=== PATIENT | male | born 1935 | race Caucasian/White ===

== ENCOUNTER → 2024-03-06 10:22 | Outpatient (REF) | payer OTHER, SELFPAY | LOC: HWRAD 10:22 | PROVIDERS: ATTENDING PHYSICIAN Internal Medicine Cardiovascular Disease; FAMILY PHYSICIAN Internal Medicine | DX: I25.10 Atherosclerotic heart disease of native coronary artery without angina pectoris (principal); I10 Essential (primary) hypertension; Z95.1 Presence of aortocoronary bypass graft; I35.1 Nonrheumatic aortic (valve) insufficiency | CPT/HCPCS: 71250 ==

== ENCOUNTER 2024-03-09 04:35 | Emergency (ER) | payer OTHER, SELFPAY ==
[2024-03-09] VITALS (28 sets, daily range): BP systolic 129–188; BP diastolic 63–88; PULSE 76–101; BMI 28.3
[2024-03-09 05:27] LABS: Urine Albumin Trace (Neg - Trace); Urine Bilirubin Negative (Negative); Urine Character Clear (Clear); Urine Color Yellow; Urine Glucose Negative (Negative); Urine Ketone Trace (Negative); Urine Leukocyte Negative (Negative); Urine Nitrite Negative (Negative); Urine Occult Blood Negative (Negative); Urine Urobilinogen Negative (Neg - 1+)
[2024-03-09 05:39] LABS: % Basophils 0.3 % (0-2); % Eosinophils 10.8 % (0-6); % Immature Granulocytes 0.3 % (0-0.5); % Lymphocytes 32.7 % (20.5-51.1); % Monocytes 8.6 % (1.7-9.3); % Neutrophils 47.3 % (42.2-75.2); Absolute Eosinophils 0.8 10^3/uL (0-0.7); Absolute Lymphocytes 2.4 10^3/uL (1.2-3.4); Absolute Monocytes 0.6 10^3/uL (0.1-0.6); Absolute Neutrophils 3.5 10^3/uL (1.4-6.5); Hematocrit 40.3 % (39.0-52.0); Hemoglobin 14.1 g/dL (13.0-18.0); Mean Corpuscular Volume 91.6 fL (80.0-94.0); Mean Platelet Volume 9.8 fL (7.4-10.4); Nucleated Red Blood Cells % 0 % (-); Platelet Count 230 10^3/uL (130-400); Red Cell Dist. Width 12.6 % (11.5-14.5); White Blood Cell Count 7.3 10^3/uL (4.8-10.8)
[2024-03-09 05:51] LABS: ALT (SGPT) 16 U/L (0-50); AST (SGOT) 22 U/L (17-59); Albumin 4.7 g/dl (3.5-5.0); Alkaline Phosphatase 47 U/L (38-126); Blood Urea Nitrogen 26 mg/dl (9-20); Calcium 9.9 mg/dl (8.4-10.2); Carbon Dioxide 22 mmol/L (22-30); Chloride 106 mmol/L (98-107); Estimated Creatinine Clearance 28 ml/min; Glucose 133 mg/dl (70-99); Potassium 4.3 mmol/L (3.5-5.1); Sodium 137 mmol/L (135-145); Total Bilirubin 0.7 mg/dl (0.2-1.3); Total Protein 7.3 g/dl (6.3-8.2)
[2024-03-09 07:11] LABS: Magnesium 1.8 mg/dl (1.6-2.3)
[2024-03-09 07:12] LABS: Troponin I < 0.012 ng/ml
[2024-03-09 07:59] LABS: TSH Reflex To Free T4 3.08 uIU/ml (0.47-4.68)
--- NOTE | 2024-03-09 08:24 | ED.GENMED ---
History of Present Illness
General
Chief Complaint: Weakness
Source: patient
Exam Limitations: none
Time Seen by Provider: 03/09/24 06:01
Nursing documentation reviewed up to this point in time: agreed with
Travel History
Have you had any contact with someone who has COVID-19?: No
Do you have any symptoms of coronavirus? Fever > 100 degrees, chills, cough, shortness of breath, sore throat, loss of taste or smell, muscle aches, or headache?: No
History of Present Illness
History of Present Illness:
Pt with history of CAD, presents to ED secondary to generalized weakness, which caused patient to fall when stood up from reclining chair this morning, which caused him to fall. Denies fever. Denies injury. Denies chest
pain/palpitations/dizziness/sob/nausea. Denies headache. Denies loss of sensation/weakness. Denies recent change in medications/diet. Of note, patient has had on-going generalized weakness over the past one month, which has caused him to be less
active. Pt is scheduled to see his psychotherapist social worker next week.
Past History
Past History
ED Past Medical History: CAD, CHF, HTN, Hypercholesterolemia, NIDDM and PR
ED Past Surgical History: Cardiac (CABG) and Other (MOH's surgery)
Social History
Tobacco: Former smoker
Alcohol: Occasional
Personal:
Living: with family
Review of Systems
Review of Systems
Allergies reviewed?: Yes
All Other Systems: ROS reviewed and negative except as documented in HPI and ROS
Constitutional: Reports no symptoms
EENT: Reports no symptoms
Respiratory: Reports no symptoms
Cardiac: Reports no symptoms
ABD/GI: Reports no symptoms
: Reports no symptoms
Musculoskeletal: Reports no symptoms
Skin: Reports no symptoms
Neurological: Reports weakness
Phy Exam
Physical Exam
Physical Exam:
Physical Exam
General: no apparent distress, not acutely ill. afebrile.
Head: nc/at. eomi
Neck: supple. no meningeal signs.
Heart: s1/s2 regular rate and rhythm, no murmur. equal radial pulses.
Lungs: no acute respiratory distress. clear bilaterally
Abdomen: normal bowel sounds. not tender.
Neuro: alert and oriented. no focal neurological deficits. normal speech.
Skin: no rash
Psychiatric: well kept. interactive and cooperative
Extremities: no edema. no calf tenderness.
Course
Orders/Labs/Results
Orders:
Orders
03/09/24 04:52
EKG [Electrocardiogram (*1)] Urgent
Reason for Study: Fatigue / Weakness
03/09/24 04:53
EKG- Treatment ONCE
03/09/24 05:13
Complete Blood Count/With Diff Urgent
Comprehensive Metabolic Panel Urgent
Magnesium Urgent
Comment: ADD ON
TSH Reflex To Free T4 Urgent
Comment: ADD ON
Urinalysis Reflex To Culture Urgent
Date Specimen was Collected: 03/09/24
Time Specimen was Collected: 05:05
03/09/24 06:34
Add On- LAB Urgent
Tests Added?: magnesium, TSH to reflex Free T4
03/09/24 06:35
Orthostatic VS- Treatment ONCE
03/09/24 06:39
Troponin I Urgent
03/09/24 08:24
0.9% Sodium Chloride 500 ml [Nss] 500 ml IV BOLUS
03/09/24 09:40
0.9% Sodium Chloride 500 ml [Nss] 500 ml IV BOLUS
03/09/24 09:41
Physical Therapy Consult [Pt Eval And Treat] Urgent
Activity Level: As Tolerated
03/09/24 10:18
CT Head W/o Iv Contrast Urgent
Comment:
Reason For Exam: dizziness
Abnormal Lab Results
03/09/24
05:13
RBC 4.40 L 10^6/uL
(4.70-6.10)
MCH 32.0 H pg
(27.0-31.0)
Absolute Eos (auto) 0.8 H 10^3/uL
(0-0.7)
Eosinophils % 10.8 H %
(0-6)
BUN 26 H mg/dl
(9-20)
Creatinine 1.7 H mg/dL
(0.7-1.3)
Glucose 133 H mg/dl
(70-99)
Urine Ketones Trace A
(Negative)
03/09/24 05:13
03/09/24 05:13
Vital Signs
Initial and Last Documented VS:
Initial Vital Signs
BP
170/88
03/09/24 04:39
Last Documented Vital Signs
Temp Pulse Resp BP Pulse Ox
98.3 F 76 18 161/73 97
03/09/24 04:41 03/09/24 13:48 03/09/24 13:48 03/09/24 13:48 03/09/24 13:48
MDM/Problems Addressed
MDM/Problems Addressed:
Patient with an unremarkable workup in ED, including blood work and CT head. Patient also evaluated by physical therapy, with recommendation provided. Patient is able to ambulate independently with steady gait on multiple occasions during
observation ED, after receiving IV fluids. Patient with potentially mild degree of dehydration, which may be contributing to his symptoms, along with underlying gait dysfunction. As such, decision made to discharge patient home at this time, and
arrangements made by case management for home PT/OT.
*Critical Care Note
Total Time (30-74mins, 75-104mins- exclusive of procedures): Not Applicable
ED Attending Note
-
Portions of this chart may have been created with voice recognition software.� Occasional wrong word or��sound alike� substitutions may have occurred due to the inherent limitations of voice recognition software.
Discharge Plan
Departure
Patient Disposition: Home (Routine Discharge)
Date of Disposition: 03/09/24
Time of Disposition: 13:17
Patient with high blood pressure during this ER visit?: Yes
Discharge Problem:
Weakness
Instructions: Generalized Weakness (DC)
Prescriptions:
No Action
hydralazine 10 mg Tablet
10 mg PO BID
Theragen Tablet
1 tab PO DAILY
aspirin 81 mg Tablet,Delayed Release (Dr/Ec)
81 mg PO DAILY
acetaminophen [Tylenol 8 Hour] 650 mg Tablet Extended Release
650 mg PO Q8HPRN PRN (Reason: mild pain)
amlodipine [Norvasc] 10 mg Tablet
10 mg PO QPM
losartan 100 mg Tablet
100 mg PO DAILY
finasteride [Proscar] 5 mg Tablet
5 mg PO HS
rosuvastatin [Crestor] 10 mg Tablet
10 mg PO DAILY
cholecalciferol (vitamin D3) [Vitamin D3] 25 mcg (1,000 unit) Tablet
25 mcg PO DAILY
Visbiome 112.5 billion cell Capsule
1 cap PO DAILY
melatonin 5 mg Tablet
5 mg PO HSPRN PRN (Reason: sleep)
Referrals:
Charlene Dickerson DO [Family Provider] -
Activity Restrictions/Additional Instructions:
As discussed, please follow-up with your primary care physician for reevaluation.
Interventions
Interventions:
*Risk Screen - Suicide Last Done: 03/09/24 04:41
*General Assessment Last Done: 03/09/24 04:41
*Neglect/Abuse Screening Last Done: 03/09/24 04:41
ED- Fall Risk Assessment Last Done: 03/09/24 04:53
*ED COVID-19 Vaccine History Last Done: 03/09/24 05:29
*Nursing Disposition Last Done: 03/09/24 13:48
ED- Cardiac Assessment Last Done: 03/09/24 08:06
ED- Neurological Assessment Last Done: 03/09/24 08:06
ED- Pulmonary Assessment Last Done: 03/09/24 08:06
Discharge Date and Time
Discharge Date/Time: 03/09/24 14:45
Print Language: ARMENIAN
[2024-03-09] MEDS: NSS 500 IV ×2 (08:35→10:08)
--- NOTE | 2024-03-09 09:30 | EDRN ---
Patient with c/o slight dizziness when sitting up and standing. Patient stated that he continued to feel weak.
--- NOTE | 2024-03-09 10:08 | CM ---
Addendum entered by Hellen Bojorquez RN 03/09/24 13:25:
CM spoke with patient. He is agreeable to home care. He would prefer [facility]. BUZZ spoke with Kaylin to update with new referral. CM sent clinical to via fax.
Addendum entered by Hellen Bojorquez RN 03/09/24 10:46:
CM reviewed PT recommendations. Patient was recommended for SNF. CM discussed recommendations with ED physician. Plan for home discharge most likely with home care. CM will await for physician to discuss discharge plan with patient.
Original Note:
BUZZ reviewed medical records. BUZZ spoke with Orquidea at [facility]. CM will send preliminary referral via [facility] to the [facility].
--- NOTE | 2024-03-09 13:44 | EDRN ---
REviewed discharge instructions with patient. Verbalized understanding. Patient waiting for his and daughter to come pick him up.
--- NOTE | 2024-03-09 13:46 | CON.NEURO4 ---
Consultation - Neurology 4
-
CONSULTING PHYSICIAN: Bertram Hernandez
REFERRING PHYSICIAN: ER
DICTATED BY: Bertram Hernandez
DATE/TIME OF REQUEST: 03/09/24
DATE/TIME OF CONSULTATION: 03/09/24
Reason for Consultation: Walking abnormality
History of Present Illness:
Patient is an 88-year-old male with a past ministry disease hypertension and diabetes presented to hospital because of walking difficulties and had difficulty after sitting up from a chair this morning.
Reports that he does feel like he had walking difficulties for the past several months to a year. Reports bilateral foot paresthesias for several years which led him to eventually stop driving. No unilateral weakness speech difficulty vision
change or unusual headaches or head or neck trauma.
No back pain or hip pain he did have some previous epidural injections to the back and hips which gave good relief.
Does describe a history of diabetes mellitus.
No history of spine surgeries.
Denies any tremor.
Past Medical History: CAD, HTN, CHF, hyperlipidemia, NIDDM
Surgical History: CABG
Family History: Non-contributory
Social History: Retired, lives at home and is , social alcohol 2-3 times a week, quit msoking more than 15 years ago
Allergies: No known drug allergies
Review of Symptoms:
Patient denies any fever, headache, chest pain, shortness of breath, GI or symptoms.
Physical Exam:
Elderly man no acute distress no signs of head or neck trauma neck with no masses oropharynx clear heart rate regular breathing unlabored abdomen soft nontender no lower extremity edema
Neurologic Examination:
The patient is awake, alert and oriented x 3. He is able to follow commands and answer questions appropriately. There is no aphasia or dysarthria. On cranial nerve assessment, pupils are 3 mm bilateral, round and reactive to light and
accommodation. Visual paul are full. Extraocular movements are intact. Facial sensations are intact and bilaterally symmetrical, there is no facial asymmetry. Hearing is intact bilaterally to normal conversation volume. Tongue palate and uvula
are midline. Sternocleidomastoid strengths are full bilaterally. No rigidity or parkinsonism or tremor. Motor strengths are 5/5 bilateral upper and lower extremities on medical research Mechoopda scale. There is no drift or involuntary movement noted.
Deep tendon reflexes are 2+ bilateral upper and lower extremities and Babinski is absent bilaterally. Decreased vibratory sense bilaterally in toes. There was no extinction noted on double simultaneous stimulation. Coordination is intact by finger
to nose bilaterally. Gait shows short steps, no ataxia.
Neuro Imaging: CT head with age appropriate atrophy, no acute findings, no hemorrhage or masses
Impressions
Multifactorial gait abnormality probably mostly from diabetic neuropathy as well as osteoarthritis. Neurologic examination not supportive of focal deficit supportive of acute ischemic stroke. Not showing signs of parkinsonism.
Recommendations:
1. CT head noncontrast reason
2. Would continue treating diabetes mellitus
3. No specific treatments for the peripheral neuropathy which is most likely due to diabetes mellitus
4. Would benefit from outpatient PT, gait precautions
5. Orthostatic vital signs check
Discussed patient care with: Patient and Dr Cole
== END 2024-03-09 14:45 | disposition home or self-care (01) ==
LOC: EMR 04:35
PROVIDERS: Emergency Medicine; EMERGENCY PHYSICIAN Emergency Medicine; FAMILY PHYSICIAN Internal Medicine
DX: R53.1 Weakness (principal); W19.XXXA Unspecified fall, initial encounter; I25.10 Atherosclerotic heart disease of native coronary artery without angina pectoris; I11.0 Hypertensive heart disease with heart failure; I50.9 Heart failure, unspecified; E78.00 Pure hypercholesterolemia, unspecified; E11.9 Type 2 diabetes mellitus without complications; I25.2 Old myocardial infarction; Z87.891 Personal history of nicotine dependence; Z95.1 Presence of aortocoronary bypass graft
CPT/HCPCS: 99284; 96360; 96361; 70450; 80053; 81003; 83735; 84443; 84484; 85025; 93005

== ENCOUNTER 2024-06-15 05:08 | Emergency (ER) | payer OTHER, SELFPAY ==
[2024-06-15 05:09] VITALS: BP 182/84
[2024-06-15 05:10] VITALS: BP 182/84; BMI 24.2
--- NOTE | 2024-06-15 05:30 | ED.GENMED ---
History of Present Illness
<John Khoury DO - Last Filed: 06/15/24 06:25>
General
Chief Complaint: Anxiety
Time Seen by Provider: 06/15/24 05:17
<MAXIMINO Lake - Last Filed: 06/15/24 06:23>
General
Source: patient and family
History of Present Illness
History of Present Illness:
Patient is an 88 y/o male with PMHx of CHF, CAD, HTN, HLD, carotid artery stenosis, BPH, DM, and lupus presenting for increased weakness and aphasia. The patient's son states the patient woke up this morning and was not able to stand or use his
words. He states that he has balance issues and occasional mild expressive aphasia at baseline but this was worse. He states that these symptoms lasted for around 1 minute and then the patients symptoms improved. His son still states he does not
believe he is at his complete baseline. His son states he believes he is dehydrated. Patient states he has no acute complaints. He states he is nervous because he is moving to a rehab facility tomorrow. He denies any current complaints.
Past History
<MAXIMINO Lake - Last Filed: 06/15/24 06:23>
Past History
ED Past Medical History: CAD, CHF, HTN, Hypercholesterolemia, NIDDM and AL
ED Past Surgical History: Cardiac (CABG) and Other (MOH's surgery)
Social History
Tobacco: Former smoker
Alcohol: Occasional
Personal:
Living: with family
Phy Exam
<MAXIMINO Lake - Last Filed: 06/15/24 06:23>
Physical Exam
Physical Exam:
GENERAL: Alert , in no apparent distress
EYE: pupils equal and reactive
Throat: Airway intact, no exudates
NECK: Supple, no significant adenopathy.
CARDIAC: Regular rate and rhythm .
LUNGS: Clear breath sounds bilaterally, no acute respiratory distress, no wheezes/rales/rhonchi
ABDOMEN: Soft, nondistended, nontender
NEUROLOGICAL: Alert and oriented x3, Some difficulty with word finding. no focal neuro deficits
SKIN: Warm and dry, skin intact.
MUSCULOSKELETAL: No edema, well perfused.
PSYCH: Normal and appropriate interaction.
Course
<John Khoury DO - Last Filed: 06/15/24 06:25>
Orders/Labs/Results
Orders:
Orders
06/15/24 05:35
IV Insert/Care/Rem.- Treatment PRN
0.9% Sodium Chloride 500 ml [Nss] 500 ml IV BOLUS
06/15/24 05:42
Basic Metabolic Panel Urgent
Abnormal Lab Results
06/15/24
05:42
BUN 32 H mg/dl
(9-20)
Creatinine 1.5 H mg/dL
(0.7-1.3)
Glucose 152 H mg/dl
(70-99)
06/15/24 05:42
Vital Signs
Initial and Last Documented VS:
Initial Vital Signs
Temp Pulse Resp BP Pulse Ox
97.8 F 57 18 182/84 99
06/15/24 05:10 06/15/24 05:10 06/15/24 05:10 06/15/24 05:10 06/15/24 05:10
Last Documented Vital Signs
Temp Pulse Resp BP Pulse Ox
97.8 F 57 18 182/84 99
06/15/24 05:10 06/15/24 05:10 06/15/24 05:10 06/15/24 05:10 06/15/24 05:10
<MAXIMINO Lake - Last Filed: 06/15/24 06:23>
Orders/Labs/Results
Orders:
Orders
06/15/24 05:35
IV Insert/Care/Rem.- Treatment PRN
0.9% Sodium Chloride 500 ml [Nss] 500 ml IV BOLUS
06/15/24 05:42
Basic Metabolic Panel Urgent
Abnormal Lab Results
06/15/24
05:42
BUN 32 H mg/dl
(9-20)
Creatinine 1.5 H mg/dL
(0.7-1.3)
Glucose 152 H mg/dl
(70-99)
06/15/24 05:42
Vital Signs
Initial and Last Documented VS:
Initial Vital Signs
Temp Pulse Resp BP Pulse Ox
97.8 F 57 18 182/84 99
06/15/24 05:10 06/15/24 05:10 06/15/24 05:10 06/15/24 05:10 06/15/24 05:10
Last Documented Vital Signs
Temp Pulse Resp BP Pulse Ox
97.8 F 57 18 182/84 99
06/15/24 05:10 06/15/24 05:10 06/15/24 05:10 06/15/24 05:10 06/15/24 05:10
<John Khoury, DO - Last Filed: 06/15/24 06:25>
MDM/Problems Addressed
Differential Diagnosis Includes:
anxiety, dehydration, TIA
MDM/Problems Addressed:
88-year-old male with anxiety, kidney function near baseline, somewhat improved. Lungs clear. Patient tolerates p.o. without difficulty. Stable for discharge. No neurologic deficits or complaints.
Chronic conditions affecting care: HTN
Acute Exacerbation and/or Progression of Chronic Illness: HTN
<John Khoury, DO - Last Filed: 06/15/24 06:25>
Data Reviewed
Review of Other/Old Records Reveals: Labs (Prior creatinine 1.7 on 03/09/2024) and Progress Notes (Evaluated by Dr. Hernandez, neurology, no specific cause for weakness.)
Source: records
<ST AleksandraPA - Last Filed: 06/15/24 06:23>
*Pulse Oximetry
Patient hypoxic: no
*EKG
Interpreted by ED Provider?: NA
*Registered Nurse Behavioral Health Interpretation
Rate: Registered Nurse Behavioral Health- N/A
*Critical Care Note
Total Time (30-74mins, 75-104mins- exclusive of procedures): Not Applicable
<John Khoury, DO - Last Filed: 06/15/24 06:25>
Patient Management
Social determinants of health affecting care: Living situation
Escalation/DeEscalation of care consider admission/obs:
Admit not indicated
ED Attending Note
<John Khoury, DO - Last Filed: 06/15/24 06:25>
ED Attending Note
Patient seen and examined by attending physician: Yes
I performed a history and physical exam of patient and discussed management with resident, I reviewed resident's note and agree with documented findings and plan of care.: Yes
ED Attending Note:
I reviewed and agree with patient treatment plan by Vinnie Santos. My exam revealed
Physical Exam
General: no apparent distress, not acutely ill
Neck: supple. no meningeal signs. normal posterior pharynx
Heart: s1/s2 regular rate and rhythm, no murmur. equal radial
pulses.
HEENT: Pupils equal round reactive to light, EOMI
Lungs: no acute respiratory distress. clear bilaterally
Abdomen: normal bowel sounds. not tender. no CVAT
Neuro: alert and oriented. no focal neurological deficits cranial nerves II through XII intact
Skin: no rash
Psychiatric: well kept. interactive and cooperative
Extremities: no edema. no calf tenderness. negative homans. good distal pulses
Son concerned about patient being dehydrated. Will check basic metabolic panel, and give 500 mL bolus normal saline. No neurologic deficits. Do not suspect CVA.
<MAXIMINO Lake - Last Filed: 06/15/24 06:23>
-
Portions of this chart may have been created with voice recognition software.� Occasional wrong word or��sound alike� substitutions may have occurred due to the inherent limitations of voice recognition software.
Discharge Plan
Departure
Patient Disposition: Home (Routine Discharge)
Date of Disposition: 06/15/24
Time of Disposition: 06:22
Patient with high blood pressure during this ER visit?: Yes
Condition: Good
Discharge Problem:
Anxiety, Decreased oral intake
Instructions: Anxiety, Adult (DC), BLOOD PRESSURE
Prescriptions:
No Action
hydralazine 10 mg Tablet
10 mg PO BID
Theragen Tablet
1 tab PO DAILY
aspirin 81 mg Tablet,Delayed Release (Dr/Ec)
81 mg PO DAILY
acetaminophen [Tylenol 8 Hour] 650 mg Tablet Extended Release
650 mg PO Q8HPRN PRN (Reason: mild pain)
amlodipine [Norvasc] 10 mg Tablet
10 mg PO QPM
losartan 100 mg Tablet
100 mg PO DAILY
finasteride [Proscar] 5 mg Tablet
5 mg PO HS
rosuvastatin [Crestor] 10 mg Tablet
10 mg PO DAILY
cholecalciferol (vitamin D3) [Vitamin D3] 25 mcg (1,000 unit) Tablet
25 mcg PO DAILY
Visbiome 112.5 billion cell Capsule
1 cap PO DAILY
melatonin 5 mg Tablet
5 mg PO HSPRN PRN (Reason: sleep)
Referrals:
Charlene Dickerson DO [Family Provider] - Call in 1-3 days for appt
Interventions
Interventions:
*Risk Screen - Suicide Last Done: 06/15/24 05:10
*General Assessment Last Done: 06/15/24 05:10
*Neglect/Abuse Screening Last Done: 06/15/24 05:10
ED-Psychological Assessment Last Done: 06/15/24 05:32
Discharge Date and Time
Print Language: CUBAN
[2024-06-15] MEDS: NSS 500 IV (05:43)
[2024-06-15 06:00] VITALS: BP 178/74
[2024-06-15 06:21] LABS: Blood Urea Nitrogen 32 mg/dl (9-20); Calcium 9.6 mg/dl (8.4-10.2); Carbon Dioxide 22 mmol/L (22-30); Chloride 106 mmol/L (98-107); Estimated Creatinine Clearance 35 ml/min; Glucose 152 mg/dl (70-99); Potassium 4.2 mmol/L (3.5-5.1); Sodium 136 mmol/L (135-145)
[2024-06-15 07:00] VITALS: BP 199/73
== END 2024-06-15 07:39 | disposition home or self-care (01) ==
LOC: EMR 05:08
PROVIDERS: EMERGENCY PHYSICIAN Emergency Medicine; FAMILY PHYSICIAN Internal Medicine
DX: R53.1 Weakness (principal); R47.01 Aphasia; F41.9 Anxiety disorder, unspecified; R63.0 Anorexia; I11.0 Hypertensive heart disease with heart failure; I50.9 Heart failure, unspecified; I25.10 Atherosclerotic heart disease of native coronary artery without angina pectoris; E78.00 Pure hypercholesterolemia, unspecified; E11.9 Type 2 diabetes mellitus without complications; I65.29 Occlusion and stenosis of unspecified carotid artery; N40.0 Benign prostatic hyperplasia without lower urinary tract symptoms; M32.9 Systemic lupus erythematosus, unspecified; I25.2 Old myocardial infarction; Z79.82 Long term (current) use of aspirin; Z95.1 Presence of aortocoronary bypass graft; Z87.891 Personal history of nicotine dependence; Z85.828 Personal history of other malignant neoplasm of skin
CPT/HCPCS: 99283; 80048